=== PATIENT | male | born 1950 | race Caucasian/White ===

== ENCOUNTER 2019-09-18 09:20 | Emergency (ER) | payer MEDICARE ==
[~2019-09-18] VITALS: Ht 172.7 cm; Wt 65.0 kg
[2019-09-18 09:57] LABS: HEMATOCRIT 48.3 % (42.0-52.0); HEMOGLOBIN 16.2 g/dL (13.5-18.0); MEAN CELL VOLUME 92 fl (78-100); MEAN CORPUSCULAR HEMOGLOBIN 31 pg (27-31); MEAN CORPUSCULAR HGB CONC 34 g/dL (33-37); MEAN PLATELET VOLUME 10.8 fl (7.4-10.4); PLATELET COUNT 100 K/mm3 (130-400); RED BLOOD COUNT 5.28 M/mm3 (4.20-5.60); RED CELL DISTRIBUTION WIDTH 13.1 % (11.5-14.5); WHITE BLOOD COUNT 4.9 K/mm3 (4.8-10.8)
[2019-09-18 10:06] LABS: BAND 14 % (0-10); LYMPHOCYTE 12 % (20-51); MONOCYTE 6 % (3-10); NEUTROPHILS 68 % (42-75)
[2019-09-18 10:08] LABS: ALBUMIN 3.6 g/dL (3.4-4.8); POTASSIUM 3.8 mmol/L (3.5-5.1)
[2019-09-18 10:10] LABS: CALCIUM 8.5 mg/dL (8.3-10.5)
[2019-09-18 10:11] LABS: TOTAL PROTEIN 6.5 g/dL (6.2-8.1)
[2019-09-18 10:13] LABS: TOTAL BILIRUBIN 0.4 mg/dL (0.2-1.2)
[2019-09-18 13:40] VITALS: BP 165/90
== END 2019-09-18 13:40 | disposition other institution (70) ==
LOC: ED 09:20
PROVIDERS: Nurse Practitioner Primary Care
DX: J18.9 Pneumonia, unspecified organism (principal); I48.91 Unspecified atrial fibrillation; R09.02 Hypoxemia; Z87.891 Personal history of nicotine dependence
CPT/HCPCS: J7030; Q9967

== ENCOUNTER 2019-09-18 12:46 | Inpatient (IN) | payer MEDICARE ==
[~2019-09-18] VITALS: Ht 175.3 cm; Wt 62.7 kg
[2019-09-18 13:48] VITALS: BP 117/78
[2019-09-18 14:07] VITALS: BP 117/78
[2019-09-18 17:59] VITALS: BP 108/70
[2019-09-18 22:20] VITALS: BP 93/54
[2019-09-19] VITALS (8 sets, daily range): BP systolic 92–117; BP diastolic 64–81
[2019-09-19 06:38] LABS: HEMATOCRIT 45.1 % (42.0-52.0); HEMOGLOBIN 15.1 g/dL (13.5-18.0); LYMPH# 0.9 (1.50-4.00); MEAN CELL VOLUME 91 fl (78-100); MEAN CORPUSCULAR HEMOGLOBIN 31 pg (27-31); MEAN CORPUSCULAR HGB CONC 34 g/dL (33-37); MEAN PLATELET VOLUME 11.2 fl (7.4-10.4); MONO # 0.4 (0.20-0.80); NEU # 2.6 (1.40-6.50); PLATELET COUNT 87 K/mm3 (130-400); RED BLOOD COUNT 4.95 M/mm3 (4.20-5.60); RED CELL DISTRIBUTION WIDTH 13.4 % (11.5-14.5); WHITE BLOOD COUNT 3.9 K/mm3 (4.8-10.8)
[2019-09-19 06:46] LABS: POTASSIUM 4.7 mmol/L (3.5-5.1)
[2019-09-19 06:47] LABS: CALCIUM 7.9 mg/dL (8.3-10.5)
[2019-09-20 02:45] VITALS: BP 115/73
[2019-09-20 06:23] VITALS: BP 120/77
[2019-09-20 09:33] VITALS: BP 102/71
[2019-09-20 14:08] VITALS: BP 112/65
[2019-09-20 18:12] VITALS: BP 97/64
[2019-09-20 22:12] VITALS: BP 95/62
[2019-09-21] VITALS (9 sets, daily range): BP systolic 94–138; BP diastolic 60–92
[2019-09-21 06:29] LABS: BASO # 0.1 (0.02-0.10); EOS % 0.2 % (0.0-4.0); HEMATOCRIT 42.4 % (42.0-52.0); HEMOGLOBIN 14.2 g/dL (13.5-18.0); MEAN CELL VOLUME 91 fl (78-100); MEAN CORPUSCULAR HEMOGLOBIN 30 pg (27-31); MEAN CORPUSCULAR HGB CONC 34 g/dL (33-37); MEAN PLATELET VOLUME 10.6 fl (7.4-10.4); MONO # 0.5 (0.20-0.80); NEU # 2.5 (1.40-6.50); PLATELET COUNT 87 K/mm3 (130-400); RED BLOOD COUNT 4.67 M/mm3 (4.20-5.60); RED CELL DISTRIBUTION WIDTH 13.7 % (11.5-14.5)
[2019-09-21 06:41] LABS: ALBUMIN 3.1 g/dL (3.4-4.8); POTASSIUM 4.1 mmol/L (3.5-5.1)
[2019-09-21 06:42] LABS: CALCIUM 8.1 mg/dL (8.3-10.5)
[2019-09-21 06:44] LABS: TOTAL PROTEIN 5.8 g/dL (6.2-8.1)
[2019-09-21 06:45] LABS: TOTAL BILIRUBIN 0.4 mg/dL (0.2-1.2)
[2019-09-22 01:54] VITALS: BP 112/72
[2019-09-22 05:35] VITALS: BP 121/81
[2019-09-22 10:45] VITALS: BP 120/75
[2019-09-22 13:40] LABS: HEMATOCRIT 47.1 % (42.0-52.0); HEMOGLOBIN 15.7 g/dL (13.5-18.0); MEAN CELL VOLUME 91 fl (78-100); MEAN CORPUSCULAR HEMOGLOBIN 30 pg (27-31); MEAN CORPUSCULAR HGB CONC 33 g/dL (33-37); PLATELET COUNT 147 K/mm3 (130-400); RED CELL DISTRIBUTION WIDTH 13.6 % (11.5-14.5); WHITE BLOOD COUNT 5.1 K/mm3 (4.8-10.8)
[2019-09-22 13:47] LABS: ALBUMIN 3.6 g/dL (3.4-4.8); POTASSIUM 3.6 mmol/L (3.5-5.1); SODIUM 139 mmol/L (136-145)
[2019-09-22 13:48] LABS: CALCIUM 8.9 mg/dL (8.3-10.5)
[2019-09-22 13:49] LABS: GLUCOSE 92 mg/dL (75-110); TOTAL PROTEIN 6.9 g/dL (6.2-8.1)
[2019-09-22 13:51] LABS: CARBON DIOXIDE 23 mmol/L (23-31); TOTAL BILIRUBIN 0.6 mg/dL (0.2-1.2)
[2019-09-22 13:55] LABS: AST-SGOT 45 U/L (5-34); BAND 1 % (0-10); LYMPHOCYTE 13 % (20-51); NEUTROPHILS 71 % (42-75)
[2019-09-22 13:56] LABS: ALT/SGPT 66 U/L (0-55); MONOCYTE 12 % (3-10)
[2019-09-22 14:03] LABS: TROPONIN-I < 0.03 ng/mL (<0.030)
[2019-09-22 14:20] VITALS: BP 114/69
[2019-09-22 17:58] VITALS: BP 141/76
[2019-09-22 22:05] VITALS: BP 119/79
[2019-09-23 02:10] VITALS: BP 103/70
[2019-09-23 05:45] VITALS: BP 115/79
[2019-09-23 06:23] LABS: HEMATOCRIT 43.3 % (42.0-52.0); HEMOGLOBIN 14.3 g/dL (13.5-18.0); MEAN CELL VOLUME 90 fl (78-100); MEAN CORPUSCULAR HEMOGLOBIN 30 pg (27-31); MEAN CORPUSCULAR HGB CONC 33 g/dL (33-37); MEAN PLATELET VOLUME 10.2 fl (7.4-10.4); PLATELET COUNT 189 K/mm3 (130-400); RED BLOOD COUNT 4.82 M/mm3 (4.20-5.60); RED CELL DISTRIBUTION WIDTH 13.6 % (11.5-14.5); WHITE BLOOD COUNT 4.5 K/mm3 (4.8-10.8)
[2019-09-23 06:31] LABS: ALBUMIN 3.2 g/dL (3.4-4.8)
[2019-09-23 06:32] LABS: POTASSIUM 3.4 mmol/L (3.5-5.1)
[2019-09-23 06:33] LABS: CALCIUM 8.6 mg/dL (8.3-10.5)
[2019-09-23 06:36] LABS: TOTAL BILIRUBIN 0.6 mg/dL (0.2-1.2)
[2019-09-23 06:48] LABS: LYMPHOCYTE 8 % (20-51); MONOCYTE 11 % (3-10); NEUTROPHILS 78 % (42-75)
[2019-09-23 10:20] VITALS: BP 108/65
[2019-09-23 14:18] VITALS: BP 105/69
[2019-09-23 18:18] VITALS: BP 97/66
[2019-09-23 22:31] VITALS: BP 118/78
[2019-09-24 02:36] VITALS: BP 108/68
[2019-09-24 05:58] VITALS: BP 123/79
[2019-09-24 10:00] VITALS: BP 97/64
[2019-09-25 11:29] LABS: A/G RATIO (PEP) 0.86 (())
== END 2019-09-24 12:59 | disposition swing bed (61) | DRG 195 ==
LOC: MED/SURG 12:46
PROVIDERS: Family Medicine; ADMIT Nurse Practitioner Primary Care
DX: J18.9 Pneumonia, unspecified organism (principal); I48.91 Unspecified atrial fibrillation; R09.02 Hypoxemia; D69.6 Thrombocytopenia, unspecified; J43.9 Emphysema, unspecified; E87.6 Hypokalemia; I95.9 Hypotension, unspecified; E86.9 Volume depletion, unspecified; Z87.891 Personal history of nicotine dependence
CPT/HCPCS: A4216; C9113; J0456; J0696; J1940; J7030; J7050; Q9967

== ENCOUNTER 2019-09-24 12:21 | Inpatient (IN) | payer MEDICARE ==
[~2019-09-24] VITALS: Ht 175.3 cm; Wt 60.9 kg
[2019-09-24 13:21] VITALS: BP 127/69
[2019-09-24 13:24] VITALS: BP 127/69
[2019-09-24 17:12] VITALS: BP 108/75
[2019-09-25 05:19] LABS: HEMATOCRIT 43.3 % (42.0-52.0); HEMOGLOBIN 14.5 g/dL (13.5-18.0); MEAN CELL VOLUME 90 fl (78-100); MEAN CORPUSCULAR HEMOGLOBIN 30 pg (27-31); MEAN CORPUSCULAR HGB CONC 34 g/dL (33-37); PLATELET COUNT 312 K/mm3 (130-400); RED BLOOD COUNT 4.82 M/mm3 (4.20-5.60); RED CELL DISTRIBUTION WIDTH 13.4 % (11.5-14.5)
[2019-09-25 05:27] LABS: ALBUMIN 3.4 g/dL (3.4-4.8)
[2019-09-25 05:28] LABS: POTASSIUM 4.3 mmol/L (3.5-5.1)
[2019-09-25 05:29] LABS: CALCIUM 9.1 mg/dL (8.3-10.5)
[2019-09-25 05:32] LABS: TOTAL BILIRUBIN 0.6 mg/dL (0.2-1.2)
[2019-09-25 05:33] LABS: LYMPHOCYTE 9 % (20-51); MONOCYTE 11 % (3-10); NEUTROPHILS 80 % (42-75)
[2019-09-25 05:48] VITALS: BP 121/83
[2019-09-25 18:13] VITALS: BP 104/66
[2019-09-26 05:54] VITALS: BP 102/56
[2019-09-26 17:59] VITALS: BP 108/70
[2019-09-27 05:52] VITALS: BP 128/80
[2019-09-27 18:08] VITALS: BP 115/74
[2019-09-28 05:51] VITALS: BP 131/97
[2019-09-28 06:33] VITALS: BP 128/91
[2019-09-28 09:21] LABS: POTASSIUM 4.5 mmol/L (3.5-5.1)
[2019-09-28 09:22] LABS: CALCIUM 9.3 mg/dL (8.3-10.5)
[2019-09-28 09:31] LABS: HEMATOCRIT 45.2 % (42.0-52.0); HEMOGLOBIN 14.5 g/dL (13.5-18.0); MEAN CELL VOLUME 93 fl (78-100); MEAN CORPUSCULAR HEMOGLOBIN 30 pg (27-31); MEAN CORPUSCULAR HGB CONC 32 g/dL (33-37); MEAN PLATELET VOLUME 9.5 fl (7.4-10.4); PLATELET COUNT 413 K/mm3 (130-400); RED BLOOD COUNT 4.87 M/mm3 (4.20-5.60); RED CELL DISTRIBUTION WIDTH 13.6 % (11.5-14.5); WHITE BLOOD COUNT 7.4 K/mm3 (4.8-10.8)
[2019-09-28 10:17] LABS: LYMPHOCYTE 18 % (20-51); MONOCYTE 15 % (3-10); NEUTROPHILS 67 % (42-75)
[2019-09-28 18:11] VITALS: BP 132/92
[2019-09-29 06:01] VITALS: BP 113/78
[2019-09-29] MEDS ORDERED: IPRATROPIUM BROM3 M1 IH (12:04)
[2019-09-29] MEDS ORDERED: CARDIZEM CD180 M1 PO (12:05)
[2019-09-29] MEDS ORDERED: EFFER-K20 MEQ PO (12:05)
[2019-09-29] MEDS ORDERED: ELIQUIS5 MG PO (12:05)
[2019-09-29] MEDS ORDERED: AEROSOL THERAPY1 DEV INH (12:06)
[2019-09-29] MEDS ORDERED: PREDNISONE20 M1 PO (12:06)
[2019-09-29] MEDS ORDERED: MUCINEX1200 MG PO (12:06)
== END 2019-09-29 12:50 | disposition home or self-care (01) | DRG 195 ==
LOC: MED/SURG 12:21
PROVIDERS: ADMIT Nurse Practitioner Primary Care
DX: J18.9 Pneumonia, unspecified organism (principal); R53.81 Other malaise; R09.02 Hypoxemia; I48.91 Unspecified atrial fibrillation; J43.9 Emphysema, unspecified; D69.6 Thrombocytopenia, unspecified; E87.6 Hypokalemia; Z87.891 Personal history of nicotine dependence
CPT/HCPCS: J3490; J7512

== ENCOUNTER → 2019-10-16 | Outpatient (CLI) | payer MEDICARE ==
[2019-09-29 06:01] VITALS: BP 113/78
[~2019-10-16] MED LIST: AEROSOL THERAPY1 DEV INH; CARDIZEM CD180 M1 PO; EFFER-K20 MEQ PO; ELIQUIS5 MG PO; IPRATROPIUM BROM3 M1 IH; MUCINEX1200 MG PO; PREDNISONE20 M1 PO
[2019-10-16 14:34] LABS: HEMATOCRIT 43.7 % (42.0-52.0); HEMOGLOBIN 14.1 g/dL (13.5-18.0); MEAN PLATELET VOLUME 10.1 fl (7.4-10.4); RED BLOOD COUNT 4.71 M/mm3 (4.20-5.60); RED CELL DISTRIBUTION WIDTH 13.2 % (11.5-14.5); WHITE BLOOD COUNT 8.1 K/mm3 (4.8-10.8)
[2019-10-16 14:40] LABS: ALBUMIN 3.6 g/dL (3.4-4.8)
[2019-10-16 14:41] LABS: POTASSIUM 4.7 mmol/L (3.5-5.1)
[2019-10-16 14:42] LABS: CALCIUM 9.3 mg/dL (8.3-10.5)
[2019-10-16 14:43] LABS: TOTAL PROTEIN 7.2 g/dL (6.2-8.1)
[2019-10-16 14:45] LABS: TOTAL BILIRUBIN 0.4 mg/dL (0.2-1.2)
== END ==
LOC: LAB 14:20
PROVIDERS: Nurse Practitioner Primary Care
DX: E87.6 Hypokalemia (principal); Z87.01 Personal history of pneumonia (recurrent)

== ENCOUNTER → 2022-01-18 | Outpatient (CLI) | payer MEDICARE | LOC: LAB 11:05 | DX: L02.91 Cutaneous abscess, unspecified (principal) ==